=== PATIENT | male | born 1940 | race Caucasian/White ===

== ENCOUNTER 2024-10-20 13:32 | Observation (INO) | payer OTHER ==
[2024-10-20] MEDS: SODIUM CHLORIDE 0.9% 500 ML INFUS.BAG IV ONE (15:02)
[2024-10-20 15:13] LABS: BASO % 0.8 % (0-2.0); EOS % 0.2 % (0-4.5); HEMATOCRIT 33.5 % (35.4-49); HEMOGLOBIN 11.3 GM/dL (11.7-16.9); LYMPH % 48.7 % (8-40); MCH 32.6 pg (25.7-33.7); MCHC 33.6 g/dl (32.0-35.9); MEAN PLT VOLUME 8.8 fl (7.5-11.1); MONO % 14.8 % (3.8-10.2); NEUT % 35.5 % (42.8-82.8); PLATELET COUNT 182 10^3/uL (134-434); RBC 3.45 M/mm3 (4.00-5.60); RDW 16.1 % (11.9-15.9); WHITE BLOOD COUNT 9.9 K/mm3 (4.0-10.0)
[2024-10-20 15:31] LABS: POTASSIUM 4.2 mmol/L (3.5-5.1)
[2024-10-20 15:33] LABS: ALBUMIN 3.6 g/dl (3.4-5.0); CALCIUM 9.2 mg/dL (8.5-10.1)
[2024-10-20 15:34] LABS: BLOOD UREA NITROGEN 48.9 mg/dL (7-18)
[2024-10-20 15:37] LABS: CREATININE 1.6 mg/dL (0.55-1.3)
[2024-10-20 15:38] LABS: BILIRUBIN,TOTAL 0.4 mg/dL (0.2-1); TOT PROT 6.8 g/dl (6.4-8.2)
[2024-10-20 16:56] LABS: URINE APPEARANCE CLEAR; URINE BILIRUBIN NEGATIVE (NEGATIVE); URINE COLOR YELLOW; URINE GLUCOSE (UA) NEGATIVE (NEGATIVE); URINE KETONE TRACE (NEGATIVE); URINE LEUK ESTERASE NEGATIVE (NEGATIVE); URINE NITRITE NEGATIVE (NEGATIVE); URINE PROTEIN TRACE (NEGATIVE); URINE UROBILINOGEN 0.2 mg/dL (0.2-1.0)
[2024-10-20 18:11] LABS: POTASSIUM 4.1 mmol/L (3.5-5.1)
[2024-10-20 18:13] LABS: BLOOD UREA NITROGEN 42.6 mg/dL (7-18); CALCIUM 8.4 mg/dL (8.5-10.1)
[2024-10-20 18:17] LABS: CREATININE 1.4 mg/dL (0.55-1.3)
[2024-10-20] MEDS ORDERED: OSELTAMIVIR PHOSPHATE 30 MG CAPSULE ONE (22:53)
[2024-10-20] MEDS ORDERED: DONEPEZIL HCL 5 MG TABLET (FP) ONE (22:53)
[2024-10-20] MEDS ORDERED: HEPARIN NA (PORCINE) 5,000 UNITS/ML 1ML VIAL ONE (22:53)
[2024-10-20] MEDS: DONEPEZIL HCL 10 MG TABLET (FP) PO SCH (23:07)
[2024-10-20] MEDS: HEPARIN NA (PORCINE) 5,000 UNITS/ML 1ML VIAL SQ SCH (23:07)
[2024-10-20] MEDS: OSELTAMIVIR PHOSPHATE 30 MG CAPSULE PO SCH (23:07)
[2024-10-21] MEDS: INSULIN ASPART SLIDING SCALE (NOVOLOG) 1 VIAL SQ SCH (00:01)
[2024-10-21 03:08] VITALS: BMI 24.5
[2024-10-21 06:20] VITALS: RESP 18
[2024-10-21 08:49] LABS: HEMATOCRIT 30.6 % (35.4-49); HEMOGLOBIN 10.2 GM/dL (11.7-16.9); MCH 32.5 pg (25.7-33.7); MCHC 33.4 g/dl (32.0-35.9); MEAN CELL VOLUME 97.3 fl (80-96); MEAN PLT VOLUME 8.4 fl (7.5-11.1); PLATELET COUNT 164 10^3/uL (134-434); RBC 3.15 M/mm3 (4.00-5.60); RDW 15.7 % (11.9-15.9); WHITE BLOOD COUNT 7.6 K/mm3 (4.0-10.0)
[2024-10-21 09:18] LABS: POTASSIUM 4.1 mmol/L (3.5-5.1)
[2024-10-21 09:20] LABS: ALBUMIN 3.1 g/dl (3.4-5.0); BLOOD UREA NITROGEN 35.8 mg/dL (7-18); CALCIUM 8.5 mg/dL (8.5-10.1); MAGNESIUM 1.9 mg/dL (1.8-2.4)
[2024-10-21 09:27] LABS: BILIRUBIN,TOTAL 0.3 mg/dL (0.2-1); CREATININE 1.1 mg/dL (0.55-1.3); PHOSPHOROUS 3.1 mg/dL (2.5-4.9)
[2024-10-21] MEDS ORDERED: LISINOPRIL 10 MG TABLET PO SCH (10:00)
[2024-10-21] MEDS: LACTATED RINGERS SOLUTION 1,000 ML/1,000 ML INFUS.BAG IV SCH (12:09)
[2024-10-21 17:01] VITALS: BP 108/58; PULSE 64; TEMP 98.2
== END 2024-10-21 18:41 | disposition home or self-care (01) ==
LOC: JER 13:32 → JERBED 17:18 → J8W 10-21 02:03
PROVIDERS: ADMIT Internal Medicine; ATTEND Internal Medicine
PROC: 3E023GC Introduction of Other Therapeutic Substance into Muscle, Percutaneous Approach (ICD-10-PCS; principal; 2024-10-20)
PROC: 3E0337Z Introduction of Electrolytic and Water Balance Substance into Peripheral Vein, Percutaneous Approach (ICD-10-PCS; 2024-10-20)
DX: J09.X2 Influenza due to identified novel influenza A virus with other respiratory manifestations (principal); G93.41 Metabolic encephalopathy; N17.9 Acute kidney failure, unspecified; E86.0 Dehydration; I10 Essential (primary) hypertension; E78.5 Hyperlipidemia, unspecified; E11.9 Type 2 diabetes mellitus without complications; Z86.73 Personal history of transient ischemic attack (TIA), and cerebral infarction without residual deficits
CPT/HCPCS: 0241U-QW; 36415; 70450-TC; 71045-TC-FY; 80048; 80053; 81003; 82962; 83735; 84100; 84484; 85025; 87086; 93005; 93010; 96360; 96372; 99285-25; G0378; J1644